=== PATIENT | male | born 1995 | race Caucasian/White ===

== ENCOUNTER 2017-02-16 01:20 | Emergency (ER) | payer OTHER ==
[2017-02-16 01:48] LABS: #Basophils 0.1 thou/uL (0.0-0.2); #Eosinphils 0.1 thou/uL (0.0-0.7); #Monocytes 0.5 thou/uL (0.11-0.59); #Neutrophils 6.1 thou/uL (1.40-6.50); %Basophils 0.7 % (0.0-1.0); %Lymphocytes 31.2 % (21.0-51.0); %Monocytes 4.9 % (0.0-10.0); Mean Platelet Volume 8.3 fL (7.4-10.4); White Blood Cell (WBC) Count 9.7 thou/uL (4.8-10.8)
[2017-02-16] MEDS ORDERED: Lorazepam 2 MG/ML VIAL ONE (01:53)
[2017-02-16 02:01] LABS: ALT (SGPT) 16 U/L (8-55); AST (SGOT) 21 U/L (5-34); Alkaline Phosphatase 104 U/L (40-150); Anion Gap 20 mmol/L (10-20); BUN (Urea Nitrogen) 21 mg/dL (8.9-20.6); Bilirubin, Total 0.6 mg/dL (0.2-1.2); CK (CPK) 154 U/L (30-200); Calc. Creatinine Clearance 0 mL/min (70-130); Calcium 10.1 mg/dL (7.8-10.44); Carbon Dioxide 20 mmol/L (22-29); Chloride 102 mmol/L (98-107); Estimated GFR-MDRD 76; Globulin 3.1 g/dL (2.4-3.5); Lipase 16 U/L (8-78); Protein, Total 8.1 g/dL (6.0-8.3)
[2017-02-16 02:05] LABS: Troponin I Less than 0.010 ng/mL (< 0.028)
--- NOTE | 2017-02-16 04:21 | ER ---
ER ADDENDUM DATE OF SERVICE: 02/16/2017 Please refer to the patient's electronic medical record for further details of his visit. In summary, the patient presents with a complaint of tachy palpitations that began shortly after usi ng some cocaine while studying. He has a history of known right ventricular dysplasia, his EKG find ings are consistent with this known underlying diagnosis. He has an AICD in place, which has not fi red today. His other symptoms are consistent with hyperventilation, which is also consistent with h is physical exam. He was not hypoxic or in significant distress. Lungs are clear, chest x-ray is u nremarkable, the patient's symptoms improved with treatment. He remained hemodynamically stable thr oughout his ER stay. There is no evidence of significant underlying pathology such as coronary synd jorje, unstable angina, pulmonary embolism, aortic dissection, and cardiac tamponade. The patient's symptoms are likely related simply to his cocaine abuse. He was advised to discontinue this, partic ularly in light of his underlying heart condition. Verbalized understanding of this, and stable for discharge at this time. All questions were answered. The patient is aware of findings and plan fo r discharge as well as need for outpatient followup.
--- NOTE | 2017-02-16 07:48 | RAD ---
PORTABLE CHEST 1 VIEW: DATE: 02/16/17. TIME: 1:40 a.m. HISTORY: Tachycardia. FINDINGS: A left-sided pacemaker device is present. The heart size is normal. The lungs are expanded without focal areas of consolidation, pneumothorax, or pleural effusions. IMPRESSION: No acute process. POS: [facility]
== END 2017-02-16 02:38 | disposition home or self-care (01) ==
LOC: ERS 01:20
DX: F14.10 Cocaine abuse, uncomplicated (principal); I49.9 Cardiac arrhythmia, unspecified
CPT/HCPCS: 71010; 80053; 82550; 82553; 83690; 84484; 85025; 93005; 96361; 96374; J2060

== ENCOUNTER 2017-06-03 06:44 | Emergency (ER) | payer OTHER | END 2017-06-03 07:05 | disposition left against medical advice (07) | LOC: ERS 06:44 | DX: Z53.21 Procedure and treatment not carried out due to patient leaving prior to being seen by health care provider (principal) ==